=== PATIENT | female | born 1945 | race African-American/Black ===

== ENCOUNTER 2019-09-26 08:15 | Outpatient (CLI) | payer MEDICARE, OTHER | END 2019-09-26 23:59 | disposition home or self-care (01) | LOC: CARD 08:15 | DX: Z01.810 Encounter for preprocedural cardiovascular examination (principal); I35.1 Nonrheumatic aortic (valve) insufficiency; I35.8 Other nonrheumatic aortic valve disorders | CPT/HCPCS: 93307-TC ==

== ENCOUNTER 2022-02-21 14:16 | Inpatient (IN) | payer MEDICARE, OTHER ==
[~2022-02-21] VITALS: Ht 162.6 cm; Wt 73.9 kg
--- NOTE | 2022-02-21 14:20 | NUR ---
RECEIVED PT 76 YRS FEMALE FROM SNF BY RASHAD WITH ALOC GOTING WORSER THEN NORMALE
--- NOTE | 2022-02-21 14:29 | NUR ---
MOVE SHEET SUBMITTED.
[2022-02-21] MEDS ORDERED: IV NS 0.9% 1,000 ML BAG IV ONE (14:30)
--- NOTE | 2022-02-21 14:39 | NUR ---
COVID SWAB COLLECTED AND SENT TO LAB
[2022-02-21 14:59] LABS: BASOPHILS % (AUTO) 0.5 % (0.0-2.0); EOSINOPHILS % (AUTO) 2.8 % (0.0-6.0); HEMATOCRIT 31 % (33-45); HEMOGLOBIN 9.5 g/dL (11.5-14.8); LYMPHOCYTES % (AUTO) 10.7 % (20.0-44.0); MEAN CORPUSCULAR HGB CONC 31 g/dl (31.0-36.0); MEAN CORPUSCULAR VOLUME 80 fL (82-100); MONOCYTES # (AUTO) 0.5 K/uL (0.1-1.30); NEUTROPHILS # (AUTO) 7.1 K/uL (1.8-8.9); PLATELET COUNT (AUTO) 499 K/uL (150-450); WHITE BLOOD COUNT (AUTO) 8.9 K/uL (4.3-11.0)
[2022-02-21 15:13] LABS: SERUM AMMONIA 20 umol/L (11-32)
[2022-02-21 15:14] LABS: CALCIUM, SERUM 9.4 mg/dL (8.5-10.1); CARBON DIOXIDE 29 mmol/L (21-32); CHLORIDE 96 mmol/L (98-107); CREATININE 1.1 mg/dL (0.6-1.3); GLUCOSE 114 mg/dL (74-106); POTASSIUM 4.5 mmol/L (3.5-5.1); SODIUM SERUM 131 mmol/L (136-145); UREA NITROGEN, BLOOD 28 mg/dL (7-18)
--- NOTE | 2022-02-21 15:18 | NUR ---
GRAEME WILCOX (TESS) AND ARNALDO BEDOLLA (SAWYER)
[2022-02-21 15:23] LABS: ALANINE AMINOTRANSFERASE 17 U/L (12-78); ALBUMIN 2.9 g/dL (3.4-5.0); ALCOHOL, BLOOD < 3 mg/dL (0-0); ALKALINE PHOSPHATASE 158 U/L (46-116); ASPARTATE AMINOTRANSFERASE 24 U/L (15-37); BILIRUBIN,DIRECT 0.1 mg/dL (0.0-0.2); BILIRUBIN,TOTAL 0.3 mg/dL (0.2-1.0)
[2022-02-21 15:26] LABS: ACETAMINOPHEN 0 ug/ml (10-30)
[2022-02-21] MEDS ORDERED: IV NS 0.9% 250 ML IV ONE (15:27)
[2022-02-21] MEDS ORDERED: IOHEXOL-350 100 ML VIAL IV ONE (15:27)
[2022-02-21] MEDS ORDERED: LANS30CA62 GT (15:51)
[2022-02-21] MEDS ORDERED: RIVA10TA GT (15:51)
[2022-02-21] MEDS ORDERED: CHOL200013 PO (15:51)
[2022-02-21] MEDS ORDERED: DOCU-141 GT (15:51)
[2022-02-21] MEDS ORDERED: METO50TA16 PO (15:51)
[2022-02-21] MEDS ORDERED: ASPI-1169 GT (15:51)
[2022-02-21] MEDS ORDERED: MESA250C2 GT (15:51)
[2022-02-21] MEDS ORDERED: CYAN-51 GT (15:51)
[2022-02-21] MEDS ORDERED: THIA100T88 PO (15:51)
[2022-02-21] MEDS ORDERED: BENA20TA9 GT (15:51)
[2022-02-21] MEDS ORDERED: SCOP1PAT11 TD (15:51)
[2022-02-21] MEDS ORDERED: ATOR20TA GT (15:51)
--- NOTE | 2022-02-21 15:55 | NUR ---
I&O CATHETER DONE FR 15 UA CLODUY COLOR SENT TO LAB
[2022-02-21 16:04] LABS: THYROID STIMULATING HORMONE 1.209 uIU/mL (0.358-3.74)
[2022-02-21] MEDS ORDERED: ASPIRIN 300 MG/SUPP.RECT RC ONE ×2 (17:30→18:23)
--- NOTE | 2022-02-21 17:47 | NUR ---
[facility] [phone].
--- NOTE | 2022-02-21 17:49 | NUR ---
[facility]. [phone]
[2022-02-21 17:55] LABS: COLOR,URINE LIGHT YELLOW (YELLOW)
[2022-02-21 17:58] LABS: BILIRUBIN,URINE NEGATIVE (NEGATIVE); PH,URINE 7.5 (5.0-8.0); PROTEIN,URINE NEGATIVE (NEGATIVE); UGLUCOSE NEGATIVE (NEGATIVE)
[2022-02-21 17:59] LABS: LEUKOCYTE ESTERASE ,URINE 3+ (NEGATIVE); NITRITE, URINE NEGATIVE (NEGATIVE); UROBILINOGEN,URINE 0.2 EU/dL (0.2)
[2022-02-21] MEDS ORDERED: ACETAMINOPHEN 650 MG/SUPP.RECT RC PRN (18:00)
[2022-02-21] MEDS ORDERED: CLOPIDOGREL BISULFATE 75 MG TABLET PO SCH (18:00)
[2022-02-21] MEDS ORDERED: ENOXAPARIN SODIUM 40 MG/0.4 ML DISP.SYRIN SQ SCH (18:00)
[2022-02-21 18:01] LABS: BACTERIA,URINE Moderate /HPF (None Seen); WBC,URINE 51-80 /HPF (0-3)
[2022-02-21 18:02] LABS: SQUAMOUS EPITHELIAL CELL,UR Few /HPF (None Seen)
--- NOTE | 2022-02-21 18:04 | NUR ---
BED 260 ICU
--- NOTE | 2022-02-21 18:16 | NUR ---
CALLED [facility] [phone] REQUESTED CLINICALS FAXED TO US SPOKE WITH
[2022-02-21] MEDS ORDERED: ENOXAPARIN SODIUM 40 MG/0.4 ML DISP.SYRIN SQ ONE (18:22)
--- NOTE | 2022-02-21 18:27 | NUR ---
HAND OFF MAEGAN RN PLAN TO ADMIT PT IN ROOM 260
[2022-02-21] MEDS ORDERED: SCOPOLAMINE PATCH 1 MG/72HR TD SCH (18:30)
[2022-02-21 18:31] LABS: THYROID STIMULATING HORMONE 1.167 uIU/mL (0.358-3.74)
[2022-02-21] MEDS ORDERED: DEXTROSE 50%-WATER 50 ML DISP.SYRIN IV PRN (19:30)
--- NOTE | 2022-02-21 19:31 | NUR ---
HAND OFF AALIYAH SAUER
--- NOTE | 2022-02-21 20:23 | NUR ---
Mariah adams in [facility] - 02/21/22 at 2104 by DELGADO pt going to room 320-1
[2022-02-21] MEDS ORDERED: RIVAROXABAN 10 MG TABLET GT SCH (22:00)
--- NOTE | 2022-02-21 22:54 | NUR ---
LAC #18G S/L PATENT AND INTACT
--- NOTE | 2022-02-21 22:55 | NUR ---
BRENDEN BEDOLLA (SON) (CONSERVATOR) [phone] UPDATED SON REGARDING CONDITION AND ADMISSION (PLEASE CALL SON FOR UPDATES)
--- NOTE | 2022-02-21 23:08 | NUR ---
BROOM WORKER RCD PT FROM ER WITH DIAPER LEAKING URINE AND A LARGE HARD STOOL. PROVIDED TRAY CARE. ALSO PT NOTED WITH LIPS CRACKED AND BLEEDING. RENDERED ORAL CARE.
--- NOTE | 2022-02-21 23:11 | NUR ---
PT TRANSFERRED TO ICU VIA ACLS PROTOCOL. VSS.
[2022-02-21 23:24] VITALS: BP 134/59
[2022-02-21] MEDS: ATORVASTATIN 40 MG TABLET GT SCH (23:25)
[2022-02-21] MEDS: BLOOD SUGAR DIAGNOSTIC 1 EACH STRIP IN SCH (23:42)
[2022-02-22] VITALS (34 sets, daily range): BP systolic 97–158; BP diastolic 50–105
[2022-02-22 05:43] LABS: BASOPHILS # (AUTO) 0.1 K/uL (0.0-0.2); BASOPHILS % (AUTO) 0.7 % (0.0-2.0); HEMATOCRIT 31 % (33-45); HEMOGLOBIN 9.8 g/dL (11.5-14.8); LYMPHOCYTES # (AUTO) 1.3 K/uL (0.8-4.8); LYMPHOCYTES % (AUTO) 15.5 % (20.0-44.0); MEAN CORPUSCULAR HGB CONC 31 g/dl (31.0-36.0); MEAN CORPUSCULAR VOLUME 80 fL (82-100); MONOCYTES # (AUTO) 0.6 K/uL (0.1-1.30); MONOCYTES % (AUTO) 7.6 % (2.0-12.0); NEUTROPHILS % (AUTO) 73.2 % (43.0-81.0); PLATELET COUNT (AUTO) 520 K/uL (150-450); RED BLOOD CELL COUNT(AUTO) 3.91 MIL/uL (4.0-5.2); WHITE BLOOD COUNT (AUTO) 8.1 K/uL (4.3-11.0)
[2022-02-22 05:50] LABS: CALCIUM, SERUM 9.4 mg/dL (8.5-10.1); POTASSIUM 3.9 mmol/L (3.5-5.1)
[2022-02-22] MEDS: BLOOD SUGAR DIAGNOSTIC 1 EACH STRIP IN SCH ×3 (06:15→17:20)
--- NOTE | 2022-02-22 07:30 | NUR ---
OPENING NOTE: REPORT RECEIVED FROM SOILA SAUER. ORDERS AND LABS REVIEWED DURING REPORT. PT CHECKED ON HOURLY AND PRN BY NURSING STAFF.
[2022-02-22] MEDS ORDERED: METOPROLOL TARTRATE 50 MG TABLET PO SCH (09:00)
[2022-02-22] MEDS ORDERED: THIAMINE HCL 100 MG TABLET PO SCH (09:00)
[2022-02-22] MEDS ORDERED: PHARMACY TO CHANGE PO MEDS TO GT/NG XX PRN (09:00)
[2022-02-22] MEDS ORDERED: DOCUSATE SODIUM 100 MG CAPSULE PO SCH (09:00)
[2022-02-22] MEDS ORDERED: CLOPIDOGREL BISULFATE 75 MG TABLET GT SCH (09:00)
[2022-02-22] MEDS ORDERED: BENAZEPRIL HCL 20 MG TABLET GT SCH (09:00)
[2022-02-22] MEDS: PANTOPRAZOLE 40 MG VIAL IV SCH (10:03)
[2022-02-22] MEDS: DOCUSATE SODIUM LIQ 100 MG/10 ML UDC GT SCH ×2 (10:03→17:20)
[2022-02-22] MEDS: ASPIRIN 81 MG TAB.CHEW GT SCH (10:06)
[2022-02-22] MEDS: CHOLECALCIFEROL (VITAMIN D 3) 400 UNIT TABLET GT SCH (10:06)
[2022-02-22] MEDS: CYANOCOBALAMIN 500 MCG TABLET GT SCH (10:06)
[2022-02-22] MEDS: THIAMINE HCL 100 MG TABLET GT SCH (10:07)
[2022-02-22] MEDS ORDERED: METOPROLOL TARTRATE 50 MG TABLET GT SCH (11:05)
--- NOTE | 2022-02-22 15:00 | NUR ---
REPORT GIVEN TO QUIRINO SAUER FOR CONTINUATION OF CARE.
[2022-02-22] MEDS: CEFTRIAXONE 1 G in IV D5W 50 ML IV SCH (15:04)
[2022-02-22] MEDS: IV NS 0.9% 250 ML IV PRN (15:04)
[2022-02-22] MEDS: JEVITY 1.2 CAL 1,000 ML BOTTLE GT PRN (17:20)
--- NOTE | 2022-02-22 22:00 | NUR ---
SEAFOOD TEAM MEMBER RCD MULTIPLE CALLS FROM PTS DAUGHTER AND CONSERVATOR ARNALDO LEVINE. ARNALDO IS ASKING FOR PTS VITAL SIGNS SHE STATES SHE KEEPS TRACK OF THE VITAL SIGNS. SHE BECAME UPSET THAT PTS HR WAS IN THE 70s AND SBP IN THE 120s. PER ARNALDO THAT IS TOO LOW FOR THE PT. ARNALDO THEN WANTED TO KNOW ALL THE MEDICATIONS PT WAS ON. NURSE WAS NOT IMMEDIATELY AVAILABLE TO DISCUSS THIS AND ARNALDO THREATENED LEGAL ACTION AND TO REPORT STAFF TO NURSING OFFICE. ARNALDO WAS PLACED ON HOLD MULTIPLE TIMES AND FOR LONG PERIODS OF TIME DUE TO PT CARE BEING A PRIORITY. WHEN REVIEWING MEDICATIONS ARNALDO BECAME UPSET BECAUSE MEDICATIONS WERE DISCONTINUED WITHOUT HER CONSENT. PER ARNALDO SHE IS THE CONSERVATOR AND ANY MEDICATION CHANGES MUST GO THRU HER. SHE WANTED SPECIFIC TIMES AND WHO DCD WHAT MEDICATION. SHE INSISTED THE CCTV TECHNICIAN DOCTOR CALL AND REVIEW THESE CHANGES WITH HER. ARNALDO DOES NOT KNOW THE MECHANISM OF MOST MEDICATIONS BUT INSISTS ON HAVING TO LAUREN PERMISSION TO ANY MEDICATION CHANGES. SHE WAS VERY UPSET THAT XARELTO AND ASPIRIN WERE DISCONTINUED. ARNALDO WAS TOLD SHE SHOULD HAVE DISCUSSED THIS WITH DOCTORS DURING THE DAY. SHE BECAME UPSET YELLING AT NURSE NOT TO ASSUME THAT SHE HAD NOT ASKED DOCTOR TO ASK FOR PERMISSION BEFORE ADJUSTING PT MEDICATIONS. ARNALDO CONTINUED SAYING THAT THINGS WERE NOT DISCUSSED WITH HER THEN SHE STATES DR KENNY DID DISCUSS DCING SOME MEDICATIONS AND NOT ALL. STATES HE REFERRED HER TO PRIMARY AND SHE STATES SHE WAS NOT ABLE TO TALK TO PRIMARY. MULTIPLE ATTEMPTS TO GET ARNALDO TO WAIT FOR PRIMARY MD AND SPECIALIST TO TALK TO HER IN THE MORNING. ARNALDO DID NOT SEEM OPEN TO IDEAS OR SUGGESTIONS. KEPT APOLOGIZING FOR TAKING NURSE'S TIME AND FOR YELLING AT NURSE. THEN ARNALDO BEGAN TALKING ABOUT HER PERSONAL LIFE AND WHICH POINT NURSE HAD TO INSIST ON ENDING PHONE CALL.
[2022-02-22] MEDS: ATORVASTATIN 40 MG TABLET GT SCH (22:24)
--- NOTE | 2022-02-22 23:00 | NUR ---
COFFEE MACHINE TECHNICIAN DAUGHTER ARNALDO CALLED AGAIN SOME MEDICATIONS ARE MISSING FROM PT PROFILE. ARNALDO DOES NOT KNOW WHAT MEDICATIONS PT TAKES SHE HAS NURSE CALL ASSISTED AND REQUEST MEDICATION LIST. OF NOTE A MEDICATION LIST WAS NOT FOUND IN THE PTS CHART. ASSISTED FAXED TWO SOMEWHAT SIMILAR LISTS OF MEDICATIONS. NURSE WILL ENDORSE LISTS TO DAY NURSE TO HAVE DOCTOR REVIEW. REINFORCED TO ARNALDO THAT NURSE HAD TO PRIORITIZE TIME TO BE GIVEN TO PTS ARNALDO'S CONVERSATION VEERS OFF TOPIC WITH ARNALDO YELLING MULTIPLE TIMES YOU HAVE TO LISTEN TO WHAT I HAVE TO SAY.
[2022-02-23] VITALS (24 sets, daily range): BP systolic 88–171; BP diastolic 30–94
--- NOTE | 2022-02-23 | NUR ---
TIP OUT WORKER PT DAUGHTER ARNALDO S/W NURSING SHEET METAL MECHANIC MULTIPLE TIMES; INSISTING ON GETTING TUBE FEEDING INFORMATION AT THIS TIME; UNFORTUNATELY NURSE HAD TO PRIORITIZE TIME TO PT CARE AND WAS NOT ABLE TO CONTINUE DISCUSSIONS. ARNALDO SAID SHE CAN STAY ON HOLD FOR LONG SHE NEEDS. ARNALDO ALSO MADE MULTIPLE ATTEMPTS TO GET PARTS AND SERVICE MANAGER TO GIVE HIM INFORMATION WITH PARTS AND SERVICE MANAGER REITERATING TO HER HE DOES NOT HAVE ANY INFORMATION HE CAN GIVE HER.
[2022-02-23] MEDS: BLOOD SUGAR DIAGNOSTIC 1 EACH STRIP IN SCH ×5 (00:31→23:59)
--- NOTE | 2022-02-23 01:00 | NUR ---
PLACEMENT INTERVIEWER PTS DAUGHTER ARNALDO CALLED AGAIN REQUESTING INFORMATION ON PTS TUBE FEEDING. DAUGHTER WANTS TUBE FEEDING CHANGED TO FIBERSOURCE. SHE DOES NOT KNOW THE RATE. SHE SAID FOR NURSE TO CHECK THE PAPER WORK FROM [facility]. NURSE TOLD DAUGHTER TIMES TWO THAT INFORMATION WAS NOT IN THE CHART. DAUGHTER ALSO WANTS WATER FLUSHES. SHE DOES NOT KNOW THE AMOUNT THAT SHE WANTS SHE WILL CALL THE DETENTION AND CALL BACK WITH THE INFORMATION. DAUGHTER ALSO TOLD NURSE PT CAN NOT HAVE ANYTHING BY MOUTH WHICH STAFF WAS ALREADY AWARE OF. PT HAS G TUBE IN PLACE. NURSE WILL REQUEST DIETARY CONSULT FOR TUBE FEEDING AND HAVE NEXT NURSE INFORM PRIMARY MD OF DAUGHTER'S WISHES.
--- NOTE | 2022-02-23 01:43 | NUR ---
PRODUCER ASSISTANT DAUGHTER ARNALDO CALLED AGAIN PER NICKY AT [facility] PT RECEIVES FIBERSOURCE HN @ 75 ML/HR x 20 HRS TO START AT 12 PM ENDS AT 8 AM. FOR A TOTAL OF 1500 ML. THEN PT RESTS FROM TF FROM 8 AM TO NOON. FOR WATER FLUSHES PT RECEIVES 30 ML PRIOR AND AFTER EACH MEDICATION. ALSO AT THE SAME TIME PT RECEIVES TUBE FEEDING PT RECEIVES WATER VIA G TUBE 60 ML/HR x 20 HRS. THIS IS WHAT DAUGHTER WANTS. TOLD DAUGHTER THIS INFORMATION WILL BE PASSED ON DURING NEXT SHIFT.
[2022-02-23 05:12] LABS: BASOPHILS # (AUTO) 0.1 K/uL (0.0-0.2); BASOPHILS % (AUTO) 0.7 % (0.0-2.0); EOSINOPHILS % (AUTO) 3.8 % (0.0-6.0); HEMATOCRIT 30 % (33-45); HEMOGLOBIN 9.4 g/dL (11.5-14.8); LYMPHOCYTES # (AUTO) 1.2 K/uL (0.8-4.8); LYMPHOCYTES % (AUTO) 13.9 % (20.0-44.0); MEAN CORPUSCULAR HGB CONC 31 g/dl (31.0-36.0); MEAN CORPUSCULAR VOLUME 81 fL (82-100); MONOCYTES # (AUTO) 1.2 K/uL (0.1-1.30); MONOCYTES % (AUTO) 13.7 % (2.0-12.0); NEUTROPHILS # (AUTO) 5.8 K/uL (1.8-8.9); NEUTROPHILS % (AUTO) 67.9 % (43.0-81.0); PLATELET COUNT (AUTO) 462 K/uL (150-450); RED BLOOD CELL COUNT(AUTO) 3.72 MIL/uL (4.0-5.2); WHITE BLOOD COUNT (AUTO) 8.5 K/uL (4.3-11.0)
--- NOTE | 2022-02-23 05:20 | NUR ---
MIME ARTIST PT NOTED WITH WHITE DISCHARGE FROM EYES.
[2022-02-23 05:25] LABS: CARBON DIOXIDE 27 mmol/L (21-32); CHLORIDE 103 mmol/L (98-107); CREATININE 1.3 mg/dL (0.6-1.3); GLUCOSE 97 mg/dL (74-106); POTASSIUM 3.8 mmol/L (3.5-5.1); SODIUM SERUM 137 mmol/L (136-145); UREA NITROGEN, BLOOD 26 mg/dL (7-18)
[2022-02-23] MEDS: PANTOPRAZOLE 40 MG VIAL IV SCH (08:37)
[2022-02-23] MEDS: ASPIRIN 81 MG TAB.CHEW GT SCH (08:37)
[2022-02-23] MEDS: CYANOCOBALAMIN 500 MCG TABLET GT SCH (08:37)
[2022-02-23] MEDS: THIAMINE HCL 100 MG TABLET GT SCH (08:37)
[2022-02-23] MEDS: CHOLECALCIFEROL (VITAMIN D 3) 400 UNIT TABLET GT SCH (08:38)
[2022-02-23] MEDS: DOCUSATE SODIUM LIQ 100 MG/10 ML UDC GT SCH ×2 (08:38→17:54)
[2022-02-23] MEDS: MUPIROCIN OINT 2% 22 GM TUBE NS SCH ×2 (08:39→21:28)
--- NOTE | 2022-02-23 10:12 | NUR ---
OPENING PT IN BED BREATHING EVENLY ON ROOM AIR NO S/S OF ACUTE DISTRESS. PT IS CONFUSED AND DOES NOT RESPOND APPROPRIATELY TO QUESTIONS AND IS NOT ABLE TO FOLLOW DIRECTIONS. MULTIPLE CVA'S IN PTS HX NEUROLOGY HAS BEEN CONSULTED. CBC WNL DAUGHTER CALLED THIS MORNING ASKING ABOUT CLARITY REGARDING THE POC WILL BE TALKING TO DOCTORS REGARDING CLEAR MED RECON. VITAL SIGNS WNL. GTUBE IN PLACE NO S/S OF INFILTRATION IV LINE IN PLACE NO S/S OF INFILTRATION. PT REPOSITIONED AND MEDS
[2022-02-23] MEDS ORDERED: hydrALAZINE HCL IV 20 MG VIAL IV PRN (11:30)
[2022-02-23] MEDS: CEFTRIAXONE 1 G in IV D5W 50 ML IV SCH (14:10)
[2022-02-23] MEDS: RIVAROXABAN 10 MG TABLET GT SCH (17:51)
--- NOTE | 2022-02-23 18:53 | NUR ---
CLOSING PT IN BED AWAKE AND MUMBLING NOT ABLE TO FOLLOW DIRECTIONS AT TIMES CAN MAKE NEEDS KNOWN, A/O 0X. ON ROOM AIR NO S/S OF ACUTE DISTRESS, VITALS WNL. TUBE FEEDING IS ON RUNNING AT 65ML/HR AT GOAL, NO RESIDUALS ASPIRATED. TKO RUNNING 10ML/H NO S/S OF BP STABLE. BED IN LOWEST POSITION HOB ELEVATED.
[2022-02-23] MEDS: JEVITY 1.2 CAL 1,000 ML BOTTLE GT PRN (19:28)
[2022-02-23] MEDS: SCOPOLAMINE PATCH 1 MG/72HR TD SCH (21:27)
[2022-02-23] MEDS: ATORVASTATIN 40 MG TABLET GT SCH (21:27)
[2022-02-24] VITALS (14 sets, daily range): BP systolic 103–151; BP diastolic 56–105
[2022-02-24 04:36] LABS: BASOPHILS % (AUTO) 0.5 % (0.0-2.0); EOSINOPHILS % (AUTO) 3.9 % (0.0-6.0); HEMATOCRIT 32 % (33-45); HEMOGLOBIN 10.2 g/dL (11.5-14.8); LYMPHOCYTES # (AUTO) 1.1 K/uL (0.8-4.8); LYMPHOCYTES % (AUTO) 14.1 % (20.0-44.0); MEAN CORPUSCULAR HGB CONC 32 g/dl (31.0-36.0); MEAN CORPUSCULAR VOLUME 79 fL (82-100); MONOCYTES # (AUTO) 0.9 K/uL (0.1-1.30); MONOCYTES % (AUTO) 11.8 % (2.0-12.0); NEUTROPHILS # (AUTO) 5.4 K/uL (1.8-8.9); NEUTROPHILS % (AUTO) 69.7 % (43.0-81.0); PLATELET COUNT (AUTO) 491 K/uL (150-450); RED BLOOD CELL COUNT(AUTO) 4.05 MIL/uL (4.0-5.2); WHITE BLOOD COUNT (AUTO) 7.8 K/uL (4.3-11.0)
[2022-02-24 04:54] LABS: CALCIUM, SERUM 9.3 mg/dL (8.5-10.1); CREATININE 1.1 mg/dL (0.6-1.3); POTASSIUM 4.1 mmol/L (3.5-5.1)
[2022-02-24] MEDS: BLOOD SUGAR DIAGNOSTIC 1 EACH STRIP IN SCH ×3 (05:13→17:19)
[2022-02-24] MEDS: CHOLECALCIFEROL (VITAMIN D 3) 400 UNIT TABLET GT SCH (08:13)
[2022-02-24] MEDS: ASPIRIN 81 MG TAB.CHEW GT SCH (08:13)
[2022-02-24] MEDS: CYANOCOBALAMIN 500 MCG TABLET GT SCH (08:13)
[2022-02-24] MEDS: PANTOPRAZOLE 40 MG/PACK PACK GT SCH (08:13)
[2022-02-24] MEDS: THIAMINE HCL 100 MG TABLET GT SCH (08:13)
[2022-02-24] MEDS: DOCUSATE SODIUM LIQ 100 MG/10 ML UDC GT SCH ×2 (08:16→16:33)
[2022-02-24] MEDS: MUPIROCIN OINT 2% 22 GM TUBE NS SCH ×2 (08:17→21:19)
[2022-02-24] MEDS: INSULIN REGULAR, HUMAN 100 UNIT/ML 3 ML VIAL SQ PRN (13:22)
--- NOTE | 2022-02-24 13:37 | NUR ---
RN NOTES: PT LEFT FOR MRI
[2022-02-24] MEDS: CEFTRIAXONE 1 G in IV D5W 50 ML IV SCH (14:28)
--- NOTE | 2022-02-24 14:40 | NUR ---
SS consult requested over the weekend for Stroke, SW will follow up.
--- NOTE | 2022-02-24 16:03 | NUR ---
RN NOTES: RECEIVED MRI REPORT SHOWS ACUTE MULTIFOCAL INFARCTS, NOTIFIED HARITHA MON NP WHO SAID HE WILL NOTIFY DR JACOBSON THE NEUROLOGIST, DR JACOBSON MAKING ROUND MADE AWARE
[2022-02-24] MEDS: RIVAROXABAN 10 MG TABLET GT SCH (16:33)
[2022-02-24] MEDS: JEVITY 1.2 CAL 1,000 ML BOTTLE GT PRN (16:35)
--- NOTE | 2022-02-24 18:30 | NUR ---
RN notes: son Greg called gave phone number and fax for pt neurologist dr Peters also he said pt has record at [facility] faxed authorization signed by son to both places, charge nurse Tamika made aware
--- NOTE | 2022-02-24 19:30 | NUR ---
PT RECEIVED AWAKE RESTING COMFORTABLY IN BED. NO SOB. ON ROOM AIR. NO S/S OF ACUTE DISTRESS. NO COMPLAINTS OF PAIN AT THIS TIME. PT IS CONFUSED AND DOES NOT RESPOND APPROPRIATELY TO QUESTIONS AND IS NOT ABLE TO FOLLOW DIRECTIONS. IV ACCESS ON LT ARM ON SL. GTUBE IN PLACE INFUSING JEVITY 1.2 AT 65ML/HR. PUREWICK IN PLACE. SAFETY MEASURES IN PLACE. WILL CONTINUE PLAN OF CARE.
--- NOTE | 2022-02-24 19:39 | NUR ---
RN closing notes: pt in bed awake, alert x 1, not in any distress,on room air, iv of LAC patent and intact and flushing well.gt of jevity running at 65 ml/hr well tolerated.no residual, connected to purewick,reposition every 2 hours, kept clean and dry and comfortable, all due meds are given as ordered,endorsed to it technician RN for SHAYNA
[2022-02-24] MEDS: ATORVASTATIN 40 MG TABLET GT SCH (21:19)
[2022-02-25] VITALS: BP 140/80
[2022-02-25] MEDS: INSULIN REGULAR, HUMAN 100 UNIT/ML 3 ML VIAL SQ PRN ×2 (00:02→05:23)
[2022-02-25] MEDS: BLOOD SUGAR DIAGNOSTIC 1 EACH STRIP IN SCH ×5 (00:02→23:44)
[2022-02-25] MEDS: IV NS 0.9% 250 ML IV PRN (02:32)
[2022-02-25 04:00] VITALS: BP 145/85
[2022-02-25] MEDS: JEVITY 1.2 CAL 1,000 ML BOTTLE GT PRN ×2 (05:27→21:52)
--- NOTE | 2022-02-25 06:30 | NUR ---
PT ASLEEP AND RESTING COMFORTABLY IN BED. NO SOB. ON ROOM AIR. NO S/S OF ACUTE DISTRESS. NO COMPLAINTS OF PAIN AT THIS TIME. PT IS CONFUSED AND DOES NOT RESPOND APPROPRIATELY TO QUESTIONS AND IS NOT ABLE TO FOLLOW DIRECTIONS. IV ACCESS ON LT ARM ON SL. GTUBE IN PLACE INFUSING JEVITY 1.2 AT 65ML/HR. PUREWICK IN PLACE. DUE MEDS GIVEN ORDERED. NEEDS ATTENDED. SAFETY MEASURES IN PLACE. WILL ENDORSE TO NEXT NURSE ON DUTY FOR CONTINUITY OF CARE.
[2022-02-25 06:54] LABS: BASOPHILS # (AUTO) 0.1 K/uL (0.0-0.2); BASOPHILS % (AUTO) 0.8 % (0.0-2.0); EOSINOPHILS % (AUTO) 5.6 % (0.0-6.0); HEMATOCRIT 31 % (33-45); HEMOGLOBIN 9.9 g/dL (11.5-14.8); LYMPHOCYTES # (AUTO) 1.2 K/uL (0.8-4.8); MEAN CORPUSCULAR HGB CONC 32 g/dl (31.0-36.0); MEAN CORPUSCULAR VOLUME 80 fL (82-100); MONOCYTES # (AUTO) 0.7 K/uL (0.1-1.30); MONOCYTES % (AUTO) 9.5 % (2.0-12.0); NEUTROPHILS # (AUTO) 4.9 K/uL (1.8-8.9); NEUTROPHILS % (AUTO) 68.1 % (43.0-81.0); PLATELET COUNT (AUTO) 476 K/uL (150-450); RED BLOOD CELL COUNT(AUTO) 3.92 MIL/uL (4.0-5.2); WHITE BLOOD COUNT (AUTO) 7.2 K/uL (4.3-11.0)
[2022-02-25 07:27] LABS: CALCIUM, SERUM 8.9 mg/dL (8.5-10.1); CARBON DIOXIDE 25 mmol/L (21-32); CHLORIDE 105 mmol/L (98-107); CREATININE 1.1 mg/dL (0.6-1.3); GLUCOSE 116 mg/dL (74-106); POTASSIUM 4.3 mmol/L (3.5-5.1); SODIUM SERUM 140 mmol/L (136-145); UREA NITROGEN, BLOOD 25 mg/dL (7-18)
--- NOTE | 2022-02-25 07:35 | NUR ---
RN OPENING NOTE RECEIVED PATIENT SLEEPING IN BED. PT IS CONFUSED AND DOES NOT RESPOND APPROPRIATELY. PT EVEN AND NON-LABORED ON ROOM AIR NO S/S OF ACUTE DISTRESS/SOB NOTED AT THIS TIME. G-TUBE IN PLACE NO S/S OF INFILTRATION. IV ACCESS KOKI, ML, SL IN PLACE. SAFETY PRECAUTIONS IN PLACE. BED IN LOWEST AND LOCKED POSITION, HOB ELEVATED, SIDE RAILS UP X2, AND CALL LIGHT AND TABLE WITHIN REACH. WILL CONTINUE TO MONITOR AND ASSIST.
[2022-02-25 08:00] VITALS: BP 157/101
[2022-02-25] MEDS: DOCUSATE SODIUM LIQ 100 MG/10 ML UDC GT SCH ×2 (09:29→16:11)
[2022-02-25] MEDS: PANTOPRAZOLE 40 MG/PACK PACK GT SCH (09:29)
[2022-02-25] MEDS: CYANOCOBALAMIN 500 MCG TABLET GT SCH (09:30)
[2022-02-25] MEDS: THIAMINE HCL 100 MG TABLET GT SCH (09:30)
[2022-02-25] MEDS: ASPIRIN 81 MG TAB.CHEW GT SCH (09:30)
[2022-02-25] MEDS: CHOLECALCIFEROL (VITAMIN D 3) 400 UNIT TABLET GT SCH (09:30)
[2022-02-25] MEDS: MUPIROCIN OINT 2% 22 GM TUBE NS SCH ×2 (09:31→21:47)
[2022-02-25] MEDS: CEFTRIAXONE 2 G in IV D5W 50 ML IV SCH (14:05)
--- NOTE | 2022-02-25 16:11 | NUR ---
RN NOTE- 1700 COLACE NOT GIVEN TO PATIENT DUE TO SOFT STOOLS AND PT HAVE MULTIPLE LARGE BM DURING THE SHIFT.
[2022-02-25] MEDS: RIVAROXABAN 10 MG TABLET GT SCH (16:15)
[2022-02-25] MEDS: OXCARBAZEPINE 150 MG TABLET PO SCH (16:15)
--- NOTE | 2022-02-25 18:30 | NUR ---
RN CLOSING NOTE PT AWAKE IN BED, PT IS CONFUSED AND DOES NOT RESPOND APPROPRIATELY. PT BREATHING EVEN AND NON-LABORED ON ROOM AIR. NO S/S OF ACUTE DISTRESS/SOB NOTED AT THIS TIME. NO S/S OF PAIN NOTED AT THIS TIME. G-TUBE RUNNING JEVITY 1.2, 65 ML/HR AND NO S/S OF INFILTRATION. IV ACCESS KOKI, ML, SL IN PLACE, INTACT PATENT AND FLUSHING WELL. PATIENT KEPT CLEAN AND DRY DURING THE SHIFT, DRESSING CHANGED. PER MD PT EVAL REQUESTED. SAFETY PRECAUTIONS IN PLACE. BED IN LOWEST AND LOCKED POSITION, HOB ELEVATED, SIDE RAILS UP X2, AND CALL LIGHT AND TABLE WITHIN REACH. WILL ENDORSE TO NEXT SHIFT FOR SHAYNA.
[2022-02-25 20:00] VITALS: BP_SYST 140; BP_SYST 146; BP_DIAS 101; BP_DIAS 99
--- NOTE | 2022-02-25 20:00 | NUR ---
MSRN AWAKE, DEMENTED, HOB 45 DEGREES TO PREVENT ASPIRATION, PATIENT ON GT FEEDINGS OF JEVITY AT 65CC/HR. RESIDUALS OF 10 CC OBTAINED. FEEDINGS CONTINUED. REPOSITIONED FOR COMFORT. MAX ASSIST. KEPT DRY CLEAN AND COMFORTABLE.
[2022-02-25 21:30] VITALS: BP 163/111
[2022-02-25] MEDS: ATORVASTATIN 40 MG TABLET GT SCH (21:46)
[2022-02-25 23:15] VITALS: BP 158/96
[2022-02-26 06:03] LABS: BASOPHILS % (AUTO) 0.3 % (0.0-2.0); HEMATOCRIT 33 % (33-45); HEMOGLOBIN 10.5 g/dL (11.5-14.8); LYMPHOCYTES # (AUTO) 1.1 K/uL (0.8-4.8); LYMPHOCYTES % (AUTO) 10.2 % (20.0-44.0); MEAN CORPUSCULAR HGB CONC 32 g/dl (31.0-36.0); MEAN CORPUSCULAR VOLUME 80 fL (82-100); MONOCYTES % (AUTO) 9.3 % (2.0-12.0); NEUTROPHILS # (AUTO) 8.1 K/uL (1.8-8.9); NEUTROPHILS % (AUTO) 78.2 % (43.0-81.0); PLATELET COUNT (AUTO) 445 K/uL (150-450); RED BLOOD CELL COUNT(AUTO) 4.14 MIL/uL (4.0-5.2); WHITE BLOOD COUNT (AUTO) 10.3 K/uL (4.3-11.0)
--- NOTE | 2022-02-26 06:30 | NUR ---
MSRN HAD LARGE SOFT BM. RESIDUALS LESS THAN 5CC FROM GT FEEDINGS. AM CARE DONE, REPOSITIONED FOR COMFORT.
[2022-02-26 06:42] LABS: CALCIUM, SERUM 9.1 mg/dL (8.5-10.1); CARBON DIOXIDE 23 mmol/L (21-32); CHLORIDE 104 mmol/L (98-107); CREATININE 1.1 mg/dL (0.6-1.3); GLUCOSE 144 mg/dL (74-106); POTASSIUM 4.1 mmol/L (3.5-5.1); SODIUM SERUM 139 mmol/L (136-145); UREA NITROGEN, BLOOD 29 mg/dL (7-18)
[2022-02-26] MEDS: BLOOD SUGAR DIAGNOSTIC 1 EACH STRIP IN SCH ×3 (07:44→17:07)
[2022-02-26 08:00] VITALS: BP 138/95
[2022-02-26] MEDS: CYANOCOBALAMIN 500 MCG TABLET GT SCH (08:28)
[2022-02-26] MEDS: DOCUSATE SODIUM LIQ 100 MG/10 ML UDC GT SCH ×2 (08:28→17:04)
[2022-02-26] MEDS: OXCARBAZEPINE 150 MG TABLET PO SCH ×2 (08:28→17:06)
[2022-02-26] MEDS: ASPIRIN 81 MG TAB.CHEW GT SCH (08:28)
[2022-02-26] MEDS: CHOLECALCIFEROL (VITAMIN D 3) 400 UNIT TABLET GT SCH (08:28)
[2022-02-26] MEDS: MUPIROCIN OINT 2% 22 GM TUBE NS SCH ×2 (08:29→21:49)
[2022-02-26] MEDS: THIAMINE HCL 100 MG TABLET GT SCH (08:29)
[2022-02-26] MEDS: PANTOPRAZOLE 40 MG/PACK PACK GT SCH (08:29)
--- NOTE | 2022-02-26 10:06 | NUR ---
RN Opening Note Not able to assess pts mental status, pt mumbles her responses. Patient states she is sleepy. No signs of distress or discomfort. Discussed plan of care. G-Tube patent, IV with no signs of infiltration, no signs of respiratory distress. VSS, will continue to monitor and provide care as needed throughout shift. All safety precautions taken, call light and table within reach, bed at lowest positions.
--- NOTE | 2022-02-26 10:34 | NUR ---
Upscale Security Officer Consult SW received a stroke management protocol consult request. Pt. is a 76 Year-old female who was admitted for a AMS. SW attempted to conduct stroke protocol assessment but pt. was unresponsive/ unable to be woken up. SW was unable to complete assessment. ERWIN discussed with nurse Pritchard who was agreeable.
[2022-02-26] MEDS: CEFTRIAXONE 2 G in IV D5W 50 ML IV SCH (13:38)
[2022-02-26 16:00] VITALS: BP 138/87
[2022-02-26] MEDS: RIVAROXABAN 10 MG TABLET GT SCH (17:06)
[2022-02-26] MEDS: MESALAMINE 400 MG CAP PO SCH (17:06)
[2022-02-26] MEDS ORDERED: MESALAMINE 250 MG CAPSULE.SA GT SCH (18:00)
--- NOTE | 2022-02-26 18:55 | NUR ---
RN Closing Report Patient AOx1-2 not able to express her concerns. Patient remained safe throughout shift, all safety precautions taken, call light and table within reach, bed at lowest position. Provided care as needed and medications as ordered. Will endorse to night nurse for continuity of care.
--- NOTE | 2022-02-26 19:20 | NUR ---
MS RN OPENING NOTES RECEIVED PT SLEEPING IN BED AT THIS TIME. AROUSABLE TO NAME, A/O X1. ON RA WITH NO S/S OF SOB OR LABORED BREATHING. IV LAC #18G SL, PATENT AND INTACT. G TUBE INTACT, RUNNING JEVITY @ 65 ML/HR. SAFETY PRECAUTION IN PLACE: BED LOCKED AND IN LOW POSITION, SIDE RAILS UP X2, CALL LIGHT WITHIN REACH. WILL CONTINUE TO MONITOR AND ASSIST.
[2022-02-26 20:00] VITALS: BP 142/91
[2022-02-26] MEDS: SCOPOLAMINE PATCH 1 MG/72HR TD SCH (21:49)
[2022-02-26] MEDS: ATORVASTATIN 40 MG TABLET GT SCH (21:49)
--- NOTE | 2022-02-27 00:20 | NUR ---
RN NOTE PT REFUSING SCHEDULED BLOOD SUGAR CHECK FOR 0000. PT STATES TO NOT DO ANYTHING WITH HER HAND. WILL CONTINUE TO MONITOR.
--- NOTE | 2022-02-27 00:23 | NUR ---
RN NOTE G TUBE FEEDING JEVITY @ 65 ML/HR PAUSED AT 0023 AND FLUSHED WITH 100 ML. WILL BE RESTARTED AFTER 4 HOURS TO COMPLY WITH 20HR DAILY RUNTIME.
[2022-02-27] MEDS: INSULIN REGULAR, HUMAN 100 UNIT/ML 3 ML VIAL SQ PRN (07:06)
[2022-02-27] MEDS: BLOOD SUGAR DIAGNOSTIC 1 EACH STRIP IN SCH ×4 (07:06→17:27)
--- NOTE | 2022-02-27 07:15 | NUR ---
MS RN CLOSING NOTES PT SLEEPING IN BED AT THIS TIME. AROUSABLE TO NAME, A/O X1. STABLE ON RA WITH NO S/S OF SOB OR LABORED BREATHING. IV LAC #18G SL, PATENT AND INTACT. G TUBE INTACT, RUNNING JEVITY @ 65 ML/HR. ALL CARE PROVIDED AND ADMINISTERED MEDICATIONS TOLERATED WELL. SAFETY PRECAUTIONS MAINTAINED: BED LOCKED AND IN LOW POSITION, SIDE RAILS UP X2, CALL LIGHT WITHIN REACH. WILL ENDORSE SHAYNA TO DAY SHIFT NURSE.
--- NOTE | 2022-02-27 07:30 | NUR ---
RN Opening Note Not able to assess pts mental status, pt answers to name, speaks but does not make sense. No signs of distress or discomfort. Discussed plan of care. G-Tube patent, IV with no signs of infiltration, no signs of respiratory distress. VSS, will continue to monitor and provide care as needed throughout shift. All safety precautions taken, call light and table within reach, bed at lowest positions.
[2022-02-27 08:24] VITALS: BP 138/82
[2022-02-27] MEDS: PANTOPRAZOLE 40 MG/PACK PACK GT SCH (08:26)
[2022-02-27] MEDS: CYANOCOBALAMIN 500 MCG TABLET GT SCH (08:26)
[2022-02-27] MEDS: DOCUSATE SODIUM LIQ 100 MG/10 ML UDC GT SCH ×2 (08:26→17:24)
[2022-02-27] MEDS: OXCARBAZEPINE 150 MG TABLET PO SCH ×2 (08:27→17:24)
[2022-02-27] MEDS: ASPIRIN 81 MG TAB.CHEW GT SCH (08:27)
[2022-02-27] MEDS: THIAMINE HCL 100 MG TABLET GT SCH (08:27)
[2022-02-27] MEDS: CHOLECALCIFEROL (VITAMIN D 3) 400 UNIT TABLET GT SCH (08:27)
[2022-02-27] MEDS: MESALAMINE 400 MG CAP PO SCH ×3 (08:29→19:52)
[2022-02-27] MEDS: MUPIROCIN OINT 2% 22 GM TUBE NS SCH ×2 (09:52→20:28)
[2022-02-27 16:29] VITALS: BP 141/79
[2022-02-27] MEDS: RIVAROXABAN 10 MG TABLET GT SCH (17:26)
--- NOTE | 2022-02-27 20:05 | NUR ---
MS RN OPENING NOTES PT SLEEPING IN BED AT THIS TIME. AROUSABLE TO NAME, A/O X1. STABLE ON RA WITH NO S/S OF SOB OR LABORED BREATHING. IV LAC #18G SL, PATENT AND INTACT. G TUBE INTACT, RUNNING JEVITY @ 65 ML/HR. ALL CARE PROVIDED WELL. SAFETY PRECAUTIONS MAINTAINED: BED LOCKED AND IN LOW POSITION, SIDE RAILS UP X2, CALL LIGHT WITHIN REACH.
[2022-02-27 21:08] VITALS: BP 116/92
[2022-02-27] MEDS: ATORVASTATIN 40 MG TABLET GT SCH (21:16)
[2022-02-28] MEDS: BLOOD SUGAR DIAGNOSTIC 1 EACH STRIP IN SCH ×4 (00:29→18:04)
[2022-02-28] MEDS: INSULIN REGULAR, HUMAN 100 UNIT/ML 3 ML VIAL SQ PRN ×2 (00:29→06:12)
--- NOTE | 2022-02-28 06:50 | NUR ---
MS RN OPENING NOTES PT SLEEPING IN BED AT THIS TIME. AROUSABLE TO NAME, A/O X1. STABLE ON RA WITH NO S/S OF SOB OR LABORED BREATHING. IV LAC #18G SL, PATENT AND INTACT. G TUBE INTACT, RUNNING JEVITY @ 65 ML/HR. ALL CARE PROVIDED WELL. SAFETY PRECAUTIONS MAINTAINED: BED LOCKED AND IN LOW POSITION, SIDE RAILS UP X2, CALL LIGHT WITHIN REACH. WILL ENDORSE CARE TO DAY SHIFT NURSE.
[2022-02-28 08:22] VITALS: BP 137/76
[2022-02-28 08:25] VITALS: BP 130/78
[2022-02-28] MEDS: PANTOPRAZOLE 40 MG/PACK PACK GT SCH ×2 (10:38→10:47)
[2022-02-28] MEDS: DOCUSATE SODIUM LIQ 100 MG/10 ML UDC GT SCH ×2 (10:38→10:47)
[2022-02-28] MEDS: THIAMINE HCL 100 MG TABLET GT SCH ×2 (10:38→10:48)
[2022-02-28] MEDS: ASPIRIN 81 MG TAB.CHEW GT SCH ×2 (10:38→10:47)
[2022-02-28] MEDS: CYANOCOBALAMIN 500 MCG TABLET GT SCH ×2 (10:39→10:48)
[2022-02-28] MEDS: CHOLECALCIFEROL (VITAMIN D 3) 400 UNIT TABLET GT SCH ×2 (10:39→10:47)
[2022-02-28] MEDS: OXCARBAZEPINE 150 MG TABLET PO SCH ×2 (10:39→10:48)
[2022-02-28] MEDS: MESALAMINE 400 MG CAP PO SCH ×3 (10:47→17:28)
[2022-02-28] MEDS: MUPIROCIN OINT 2% 22 GM TUBE NS SCH (10:49)
--- NOTE | 2022-02-28 11:45 | NUR ---
Plug Cutting Machine Operator Consult SW received a consult request for a stroke protocol. Pt. is a 73 y.o. female who was suffered a stroke per EMR. ERWIN met with pt. at bedside. Pt. was not alert. Pt. appears unkept. SW was unable to conduct assessment at this time. DC plan: Pt. is scheduled to be discharged today at 4:30 am per Nurse Root report. Pt. will be returning to SNF. ERWIN administered the PHQ9 post stroke depression scale, pt. scored a 0 due to being asleep and unable to be woken up. ERWIN discussed with nurse Root and agreed that theres no need for a psych consult at this time.
[2022-02-28 16:02] VITALS: BP 147/97
[2022-02-28] MEDS: RIVAROXABAN 10 MG TABLET GT SCH (18:03)
== END 2022-02-28 19:00 | DRG 64 ==
LOC: ER 14:25 → ICU 19:05 → TELE 20:46 → ICU 21:01 → TELE 02-24 10:45 → MED 02-24 23:23
PROVIDERS: ADMIT Nurse Practitioner Acute Care; ATTEND Nurse Practitioner Acute Care
DX: I63.22 Cerebral infarction due to unspecified occlusion or stenosis of basilar artery (principal); G92.8 Other toxic encephalopathy; D68.59 Other primary thrombophilia; E44.0 Moderate protein-calorie malnutrition; E87.1 Hypo-osmolality and hyponatremia; N39.0 Urinary tract infection, site not specified; K51.90 Ulcerative colitis, unspecified, without complications; F03.94 Unspecified dementia, unspecified severity, with anxiety; Z93.1 Gastrostomy status; Z20.822 Contact with and (suspected) exposure to COVID-19; E78.5 Hyperlipidemia, unspecified; I48.0 Paroxysmal atrial fibrillation; G40.909 Epilepsy, unspecified, not intractable, without status epilepticus; Z86.73 Personal history of transient ischemic attack (TIA), and cerebral infarction without residual deficits; Z85.3 Personal history of malignant neoplasm of breast; Z86.16 Personal history of COVID-19; Z66 Do not resuscitate; M06.9 Rheumatoid arthritis, unspecified; F29 Unspecified psychosis not due to a substance or known physiological condition; F41.9 Anxiety disorder, unspecified; R13.10 Dysphagia, unspecified; K21.9 Gastro-esophageal reflux disease without esophagitis; Z79.01 Long term (current) use of anticoagulants; Z79.82 Long term (current) use of aspirin; Z79.899 Other long term (current) drug therapy; E86.1 Hypovolemia; D75.839 Thrombocytosis, unspecified; D63.8 Anemia in other chronic diseases classified elsewhere; D50.9 Iron deficiency anemia, unspecified; Z74.09 Other reduced mobility; R29.716 NIHSS score 16; I63.29 Cerebral infarction due to unspecified occlusion or stenosis of other precerebral arteries; R79.89 Other specified abnormal findings of blood chemistry; I63.211 Cerebral infarction due to unspecified occlusion or stenosis of right vertebral artery; E88.09 Other disorders of plasma-protein metabolism, not elsewhere classified; B96.4 Proteus (mirabilis) (morganii) as the cause of diseases classified elsewhere; M24.541 Contracture, right hand; H55.89 Other irregular eye movements
CPT/HCPCS: 36415; 70450-TC; 70496-TC; 70498-TC; 70551-TC; 71045-TC; 80048-TC; 80061-TC; 80076-TC; 81001; 82140-TC; 82962-TC; 83605-TC; 83880; 84443-TC; 84484-TC; 85025-TC; 85652-TC; 85730-TC; 87040-TC; 87081-TC; 87086-TC; 92526; 92611-TC; 97110-TC; 97112-TC; 97530-TC; A6253; C9113; C9803; G0378; G0480; J0360; J0696; J1650; J1815; J7030; J7050; J7060; Q9967